=== PATIENT | female | born 1955 | race Caucasian/White ===

== ENCOUNTER 2018-12-22 19:10 | Inpatient (IN) | payer MEDICARE ==
[~2018-12-22] VITALS: Ht 170.2 cm; Wt 83.0 kg
[2018-12-22 19:19] LABS: PCO2 Arterial 41.5 mmHg (35-45); pH Blood Arterial 7.39 (7.35-7.45)
[2018-12-22 19:52] LABS: BASOPHILS ABSOLUTE AUTO 0.04 K/mm3 (0.00-0.23); BASOPHILS PERCENT AUTO 1 % (0-2); EOSINOPHILS ABSOLUTE AUTO 0.23 K/mm3 (0.00-0.68); EOSINOPHILS PERCENT AUTO 3 % (0-6); Hematocrit 40.7 % (33.0-51.0); IMMATURE GRAN ABSOLUTE AUTO 0.05 K/mm3 (0.00-0.10); IMMATURE GRAN PERCENT AUTO 1 % (0-1); LYMPHOCYTES PERCENT AUTO 10 % (21-46); MONOCYTES ABSOLUTE AUTO 0.25 K/mm3 (0.16-1.47); MONOCYTES PERCENT AUTO 4 % (4-13); Mean Corpuscular HGB 30.3 pg (26.0-34.0); Mean Corpuscular HGB Conc 34.4 g/dL (31.5-36.5); Mean Corpuscular Volume 88 fL (80-100); Mean Platelet Volume 9.4 fL (9.1-12.4); NEUTROPHILS ABSOLUTE AUTO 5.78 K/mm3 (1.96-9.15); NEUTROPHILS PERCENT AUTO 82 % (41-73); Platelet Count 271 K/mm3 (150-400); RDW Coefficient Variation 12.1 % (11.7-14.2); RDW Standard Deviation 38.9 fL (35.1-46.3); Red Blood Cell Count 4.62 M/mm3 (3.80-5.20); White Blood Cell Count 7.05 K/mm3 (4.00-11.30)
[2018-12-22 20:05] LABS: Alanine Aminotransfer (ALT/SGP 14 U/L (12-78); Albumin, Blood 3.8 g/dL (3.4-5.0); Albumin/Globulin Ratio 0.9 (0.8-1.8); Alk Phos 142 U/L (50-136); Anion Gap 9 mmol/L (6-16); Aspartate Aminotrans (AST/SGOT 14 U/L (12-37); Bilirubin, Total 0.5 mg/dL (0.1-1.0); Blood Urea Nitrogen 14 mg/dL (8-24); Bun/Creatinine Ratio 13.5 (12.0-20.0); CO2, Blood 27 mmol/L (21-32); Calcium, Blood 8.5 mg/dL (8.5-10.1); Chloride, Blood 102 mmol/L (98-108); Creatinine, Blood 1.04 mg/dL (0.40-1.00); Ethanol (Alcohol), Blood, Med <3 mg/dL; Globulin, Blood 4.2 g/dL (2.2-4.0); Glomerular Filtration Rate 57 (60-); Glucose, Blood 169 mg/dL (70-99); Potassium, Blood 2.8 mmol/L (3.5-5.5); Salicylate <1.7 mg/dL (2.8-20.0); Sodium, Blood 138 mmol/L (136-145)
[2018-12-22 20:06] LABS: Acetaminophen, Random <2.0 ug/mL (10.0-30.0)
[2018-12-22] MEDS ORDERED: LORA1 PO (20:16)
[2018-12-22] MEDS ORDERED: RABE20 PO (20:17)
[2018-12-22] MEDS ORDERED: EUTHYROX112 MCG PO (20:17)
[2018-12-22] MEDS ORDERED: GABA100 PO (20:17)
[2018-12-22] MEDS ORDERED: FURO40 PO (20:17)
[2018-12-22] MEDS ORDERED: Hydroxyzine HCl50 MG PO (20:17)
[2018-12-22 20:21] LABS: Source, Urine Catheter
[2018-12-22 20:24] LABS: Bilirubin, Urine Neg (Neg); Blood, Urine Neg (Neg); Glucose Qualitative, Urine Neg (Neg); Ketones, Urine Neg (Neg); Leukocyte Esterase, Urine Neg (Neg); Nitrite, Urine Neg (Neg); Protein, Urine Neg (Neg); Urobilinogen, Urine NORM (Normal)
[2018-12-22 20:31] LABS: Appearance, Urine Clear (Clear); Color, Urine Yellow (P-Yellow)
[2018-12-22 20:38] LABS: U Amphetamine Screen Not Detected; U Barbituate Screen Not Detected; U Benzodiazapine Screen DETECTED; U Buprenorphine Screen Not Detected; U Cannabinoids Screen Not Detected; U Cocaine Screen Not Detected; U Methadone Screen Not Detected; U Methamphetamine Screen Not Detected; U Opiates Screen Not Detected; U Oxycodone Screen Not Detected; U Phencyclidine Screen Not Detected; U Propoxyphene Screen Not Detected
[2018-12-22] MEDS ORDERED: BUSP15 PO (21:25)
[2018-12-22] MEDS ORDERED: BENZ100A PO (21:44)
[2018-12-22] MEDS ORDERED: Monodox100 MG PO (21:45)
[2018-12-22] MEDS ORDERED: BACL10 PO (21:46)
--- NOTE | 2018-12-23 00:39 | NUR ---
ASSUMED CARE OF PT PT TO ICU 3 FROM ED AT 2200. PT IS UNRESPONSIVE WHILE TRANSITIONING TO ICU BED. PT FAILS TO FOLLOW COMMANDS AND SITS UP IN BED MOANING WITH EYES CLOSED ONLY AFTER AGGRESSIVE STERNAL RUB. PT REPEATS SITTING UP/LAYING DOWN RHYTHMICALLY FOR APPROX 15 MINS BEFORE SHE FALLS BACK TO SLEEP AND BEGINS SNORING. PT HAS DISPLAYED THIS BEHAVIOR WITH EACH STERNAL RUB. PT CURRENTLY PROTECTING HER AIR WAY AND MAINTAINING SATS IN THE UPPER 90'S WHILE SLEEPING BUT SHOWS DECLINE IN O2 WITH PAINFUL STIMULUS. PT'S OTHER VSS. PT INCONTINENT OF BOWEL X3, TEMP DUMONT PATENT AND DRAINING CLEAR YELLOW URINE. PLEASE SEE FULL ADMIT ASSESSMENT.
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
[2018-12-23 03:47] LABS: Hemoglobin 14.3 g/dL (11.5-16.0); Mean Corpuscular HGB 30.8 pg (26.0-34.0); Mean Corpuscular HGB Conc 34.9 g/dL (31.5-36.5); Mean Corpuscular Volume 88 fL (80-100); Mean Platelet Volume 9.3 fL (9.1-12.4); Platelet Count 293 K/mm3 (150-400); RDW Coefficient Variation 12.2 % (11.7-14.2); RDW Standard Deviation 39.4 fL (35.1-46.3); Red Blood Cell Count 4.64 M/mm3 (3.80-5.20)
[2018-12-23 04:07] LABS: Alanine Aminotransfer (ALT/SGP 14 U/L (12-78); Albumin, Blood 3.8 g/dL (3.4-5.0); Albumin/Globulin Ratio 0.9 (0.8-1.8); Alk Phos 142 U/L (50-136); Anion Gap 7 mmol/L (6-16); Aspartate Aminotrans (AST/SGOT 11 U/L (12-37); Bilirubin, Total 0.5 mg/dL (0.1-1.0); Blood Urea Nitrogen 17 mg/dL (8-24); Bun/Creatinine Ratio 18.2 (12.0-20.0); CO2, Blood 30 mmol/L (21-32); Calcium, Blood 8.8 mg/dL (8.5-10.1); Chloride, Blood 105 mmol/L (98-108); Creatinine, Blood 0.93 mg/dL (0.40-1.00); Globulin, Blood 4.1 g/dL (2.2-4.0); Glomerular Filtration Rate >60 (60-); Glucose, Blood 123 mg/dL (70-99); Sodium, Blood 142 mmol/L (136-145); Total Protein, Blood 7.9 g/dL (6.4-8.2)
--- NOTE | 2018-12-23 05:21 | NUR ---
SHIFT SUMMARY NO ACUTE CHANGES OVERNIGHT. PT FAILS TO FOLLOW COMMANDS AND ONLY RESPONDS TO AGGRESSIVE STERNAL RUB BY SITTING UP. PT DOES NOT OPEN HER EYES TO VERBAL OR PAINFUL STIMULI. VSS THROUGHOUT SHIFT. REMAINS AT BEDSIDE. WILL REPORT TO DAYSHIFT NURSE.
--- NOTE | 2018-12-23 05:29 | NUR ---
POISON CONTROL POISON CONTROL NOTIFIED OF PT'S ADMIT AT THIS TIME. SUPPORTIVE MANAGEMENT RECOMMENDED AT THIS TIME.
--- NOTE | 2018-12-23 07:15 | NUR ---
START OF SHIFT NOTE: PATIENT IS CONFUSED, DOES NOT FOLLOW COMMANDS, SITS UP IN BED AND TRYING TO GET UP, INCOMPREHENSIBLE SPEECH, YELLS, MOANS, GROANS, GARBLED, OPENS EYES BUT NOT TO COMMAND, AT BEDSIDE, PATIENT IS RESTRAINT, DIAPHORETIC, TEMP AT 100.0, HR IN 110'S TO 120'S, ST, LUNG SOUNDS CLEAR, BOWEL TONE PRESENT BUT HYPOACTIVE, DUMONT CATHETER IN PLACE WITH TEMP PROBE, DR. COLIN IN TO SEE PATIENT, WILL WRITE ORDERS, PSYCH CONSULT, CALL LIGHT IN REACH, WILL CONTINUE TO MONITOR.
--- NOTE | 2018-12-23 09:04 | NUR ---
FACESHEET SENT TO ED FOR HIEN CONSULT
[2018-12-23 10:43] LABS: Troponin I <0.015 ng/mL (0.000-0.040)
--- NOTE | 2018-12-23 11:32 | NUR ---
PATIENT RESTING AT THIS TIME AFTER ANOTHER DOSE OF ATIVAN, CALL LIGHT IN REACH, WILL CONTINUE TO MONITOR.
--- NOTE | 2018-12-23 11:37 | NUR ---
DR STANFORD CALLED HE IS UNABLE TO SEE PATIENT TODAY, STATED TELEPSYCH COULD BE CONSULTED IF NEEDED TODAY. OTHERWISE HE WILL ATTEMPT TO SEE PATIENT TOMORROW.
--- NOTE | 2018-12-23 12:24 | NUR ---
POISON CONTROL CALLED AND UPDATE WAS PROVIDED, POISON CONTROL SUGGESTES TO CHECK MAGNESIUM AND CK LEVELS, ADD ONS ORDERED, WILL CONTINUE TO MONITOR.
--- NOTE | 2018-12-23 12:58 | NUR ---
PATIENT IS CALM AND QUIET AT THIS TIME AFTER ZYPREXA IM INJECTION AND ATIVAN IV DOSE, SNORING LOUDLY, O2 SATURATION AT 100 % ON RA, PUPILS PINPOINT AND NON-REACTIVE AT THIS TIME, AT BEDSIDE, CALL LIGHT IN REACH, WILL CONTINUE TO MONITOR.
[2018-12-23 12:59] LABS: CPK Creatine Kinase 166 U/L (26-193)
--- NOTE | 2018-12-23 13:42 | NUR ---
PATIENT CONTINUES TO BE AGITATED AND UNRESPONSIVE, UNABLE TO FOLLOW COMMANDS, PATIENT IS YELLING AND SCREAMING INCOHERENT GARBLED SOUNDS, PUPILS AT THIS TIME ARE STILL PINPOINT AND NON REACTIVE, AT BEDSIDE, ROADING ENGINEER IN TO DO STUDY, AT BEDSIDE, CALL LIGHT IN REACH, WILL CONTINUE TO MONITOR.
--- NOTE | 2018-12-23 14:26 | NUR ---
Limited echocardiogram performed.
--- NOTE | 2018-12-23 14:51 | NUR ---
DR. ALFONSO COLIN IN AGAIN TO CHECK ON PATIENT, STATED URGENCY FOR HEAD CT BUT PATIENT CONTINUES TO BE AGITATED AND TRYING TO MOVE CONTINUOUSLY, UNABLE TO FOLLOW COMMANDS.
--- NOTE | 2018-12-23 15:15 | NUR ---
PATIENT TO CT WITH TRANSPORT MONITOR, SEDATED PRIOR TO TEST WITH ATIVAN 2 MG, CONTINUED TO BE AGITATED, BUT CT WAS DONE, PATIENT RETURNED TO ROOM, PLACED BACK ON HARDWIRE MONITOR, CALL LIGHT IN REACH, WILL CONTINUE TO MONITOR.
--- NOTE | 2018-12-23 16:42 | NUR ---
Per RN request, I met with Obdulio brito at bedside. Yelena was very restless and moaning. She is non-lucid and inconsolable. This is clearly upsetting for Obdulio. He appears hyper-attentive, stating "this is my fault. I feel horrible, I will not leave her side." I provided education along the lines of her not being aware of where she is, or why, or who is present; therefore, he should not feel obligated to stay 24/7. Obdulio would not allow me to employee counselor or comfort him. He is very [place], with a malfunctioning hearing aid. He was dismissive. [employer] serices will remain available.
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
--- NOTE | 2018-12-23 23:37 | NUR ---
MIDSHIFT ASSESSMENT PT CONTINUES TO YELL OUT AND BE AGITATED DESPITE 2 MG ATIVAN AND 5 MG ZYPREXA. PT PULLS ON DUMONT CATH WITH FEET AND MANAGES TO RELEASE IT FROM STAT LOCK, BILATERAL SOFT ANKLE RESTRAINTS APPLIED TO PREVENT PT FROM PULLING DUMONT OUT. PT WILL STOP MOANING AND TURN TO ME IF I SHARPLY SAY HER NAME AND THEN SHE CONTINUES TO MOAN AND YELL. ANXIOUSLY REMAINS AT BEDSIDE. VSS.
[2018-12-24 03:36] LABS: BASOPHILS ABSOLUTE AUTO 0.05 K/mm3 (0.00-0.23); BASOPHILS PERCENT AUTO 1 % (0-2); EOSINOPHILS ABSOLUTE AUTO 0.02 K/mm3 (0.00-0.68); EOSINOPHILS PERCENT AUTO 0 % (0-6); Hemoglobin 13.4 g/dL (11.5-16.0); IMMATURE GRAN ABSOLUTE AUTO 0.04 K/mm3 (0.00-0.10); IMMATURE GRAN PERCENT AUTO 0 % (0-1); LYMPHOCYTES ABSOLUTE AUTO 1.36 K/mm3 (0.84-5.20); LYMPHOCYTES PERCENT AUTO 15 % (21-46); MONOCYTES ABSOLUTE AUTO 0.78 K/mm3 (0.16-1.47); MONOCYTES PERCENT AUTO 9 % (4-13); Mean Corpuscular HGB 30.1 pg (26.0-34.0); Mean Corpuscular HGB Conc 34.4 g/dL (31.5-36.5); Mean Corpuscular Volume 88 fL (80-100); Mean Platelet Volume 9.4 fL (9.1-12.4); NEUTROPHILS ABSOLUTE AUTO 6.94 K/mm3 (1.96-9.15); NEUTROPHILS PERCENT AUTO 76 % (41-73); Platelet Count 257 K/mm3 (150-400); RDW Coefficient Variation 12.2 % (11.7-14.2); RDW Standard Deviation 38.8 fL (35.1-46.3); Red Blood Cell Count 4.45 M/mm3 (3.80-5.20); White Blood Cell Count 9.19 K/mm3 (4.00-11.30)
[2018-12-24 03:52] LABS: Anion Gap 7 mmol/L (6-16); Blood Urea Nitrogen 23 mg/dL (8-24); Bun/Creatinine Ratio 26.6 (12.0-20.0); CO2, Blood 26 mmol/L (21-32); Calcium, Blood 8.6 mg/dL (8.5-10.1); Chloride, Blood 115 mmol/L (98-108); Creatinine, Blood 0.87 mg/dL (0.40-1.00); Glomerular Filtration Rate >60 (60-); Glucose, Blood 120 mg/dL (70-99); Potassium, Blood 3.7 mmol/L (3.5-5.5); Sodium, Blood 148 mmol/L (136-145)
--- NOTE | 2018-12-24 06:01 | NUR ---
SHIFT SUMMARY PT CONTINUES TO YELL "SILKE" AND IS NOW YELLING "JUDY" AND "OH GOD". PT DOES RESPOND TO HER NAME BY TURNING AND LOOKING BUT REMAINS AGITATED AND WILL NOT FOLLOW COMMANDS. PT IS RESTLESS IN BED TWISTING AND TURNING AND REMAINS IN BILATERAL UPPER AND LOWER SOFT RESTRAINTS WELL A BONNY VEST TO PROTECT PT'S IV'S AND DUMONT CATH. WHILE ATTEMPTING TO PROVIDE CARE FOR PT, PT WILL PULL AWAY AND YELL "NO" OR "OUCH". PT'S CONTINUES AT BEDSIDE COMFORTING PT. VSS THROUGHOUT SHIFT. 300 ML URINARY OUTPUT. SEE PREVIOUS SHIFT NOTES. WILL REPORT TO DAYSHIFT NURSE.
--- NOTE | 2018-12-24 10:44 | NUR ---
POISON CONTROL UPDATED WITH LABS AND VITALS, STATES THEY WILL CHECK BACK ON PT TOMORROW.
--- NOTE | 2018-12-24 10:54 | NUR ---
0720: CARE ASSUMED, ASSESSMENT COMPLETED. PT IN BED IN 4 POINT SOFT RESTRAINTS AND A BONNY VEST PER ORDERS. PT AWAKE AND ALERT, AGITATED, CALLING OUT TO , CONTINUES TO PULL AT RESTRAINTS AND ATTEMPT TO SIT UP STATING SHE WANTS OUT OF BED. VSS, HR NSR, ATTENDS ON. RESTRAINTS RELEASED MOMENTARILY, SKIN UNDERNEATH INTACT. VIDEO MONITORING ACTIVE. 0750: SEROQUEL ADMINISTERED AT THIS TIME FOR AGITATION AND RESTLESSNESS. PT REPOSITIONED IN BED FOR COMFORT, AT BEDSIDE. 0900: PT'S LEFT FOR APPOINTMENT, PT CALMED AFTER LEFT BEDSIDE. AM MEDICATIONS ADMINISTERED WITHOUT DIFFICULTY, PT TOLERATING PO WELL, WATER GIVEN. 1100: PT'S BACK AT BEDSIDE, PT LYING CALMLY IN BED BUT REQUESTING HER REMOVE RESTRINTS. PT SEEMS TO BE MORE AGITATED WITH AT BEDSIDE. ASSISTED TO REPOSITION, BLE RESTRAINTS RELEASED FOR A BREAK AT THIS TIME, WILL MONITOR CLOSELY.
--- NOTE | 2018-12-24 11:32 | NUR ---
1130: PT AGITATED, CALLING OUT, CONFUSED. ZYPREXA ADMINISTERED PER ORDERS, LIGHTS TURNED DOWN. SWB RESTRAINTS AND BONNY REMAIN IN PLACE, AT BEDSIDE. VSS, WILL CONTINUE TO MONITOR.
--- NOTE | 2018-12-24 13:09 | NUR ---
1230: DR. STANFORD AT BEDSIDE TO ASSESS PT, PT REMAINS CONFUSED AND UNABLE TO ANSWER QUESTIONS APPROPRIATELY, DOES NOT KNOW PLACE/DATE/SITUATION, PT NOT COMBATIVE AT THIS TIME. 1310: PT AGITATED, CALLING OUT, YELLING AT TO LET HER GO. ATIVAN ADMINISTERED PER ORDERS.
--- NOTE | 2018-12-24 13:45 | NUR ---
SEROQUEL ADMINISTERED AT THIS TIME FOR CONTINUED AGITAITON/RESTLESSNESS. BUE RESTRAINTS AND BONNY VEST REMAIN IN PLACE, AT BEDSIDE. ENCOURAGED TO GO HOME AND REST, REFUSES STATING HE CANNOT LEAVE HIS . SEEMS OVERLY WORRIED BUT NOT CONFRONTATIONAL.
--- NOTE | 2018-12-24 14:21 | NUR ---
1420: DR. POLANCO AT BEDSIDE FOR ASSESSMENT, NOTIFIED OF URINE OUTPUT 310ML IN 7 HOURS AND OF PT'S REQUEST FOR FOOD/FLUIDS. PT REMAINS CONFUSED, IS COOPERATIVE WITH ASSESSMENTS AND TREATMENTS.
--- NOTE | 2018-12-24 17:04 | NUR ---
1600: PT SLEEPING AT THIS TIME, VSS. NO RESTLESSNESS OR AGITATION NOTED. REMAINS AT BEDSIDE.
--- NOTE | 2018-12-24 18:46 | NUR ---
1800: PT REPOSITIONED IN BED, ATTENDS CHANGED FOR SMALL BM, CALMOSEPTINE TO QUINTEN AREA, CATH CARE DONE. PT AWAKE, BECOMING MORE ALERT, FOLLOWING COMMANDS. VSS, REMAINS AT BEDSIDE, WILL CONTINUE TO MONITOR. 1845: PT SITTING UP IN BED TALKING WITH , SPEECH REMAINS SLURRED, PT ORIENTED TO SELF, KNOWS SHE IS IN A HOSPITAL, DOES NOT KNOW THE DATE, TOWN, OR WHAT BROUGHT HER TO THE HOSPITAL. PT COOPERATIVE AND CALM, BUE RESTRAINTS RELEASED AT THIS TIME, WILL CONTINUE TO MONITOR CLOSELY. VSS, PT DENIES THOUGHTS OF HARMING HERSELF OR OTHERS, STATES SHE DOES NOT REMEMBER TAKING AN OVERDOSE OF ATIVAN OR ANY OTHER MEDICATIONS. REPORT TO ONCOMING SHIFT.
--- NOTE | 2018-12-24 19:10 | NUR ---
PT'S REPORTS THAT PT "SOUNDS NORMAL TO ME" WHEN SHE SPEAKS TO HIM, STATING THAT HER SPEECH IS ALWAYS SLURRED AND SLOW. WHEN ASKED IF SHE NORMALLY HAS WORD SALAD, HE STATES SHE DOES NOT BUT THAT HER SPEECH IS OTHERWISE BASELINE.
--- NOTE | 2018-12-24 19:35 | NUR ---
START OF SHIFT: REPORT FROM RADHA DICKINSON. PT A+O X4 BUT HAD TO TAKE TIME TO RESPOND. PT SPEECH CLEAR AND VSS. PT STATED THAT SHE WANTED TO GO HOME TONIGHT. AMA EXPLAINED TO BOTH PT AND SPOUSE. BOTH HAVE REASONED TO HAVE PT STAY UNTIL TOMORROW. PT REQUESTED SOMETHING MORE COMFORTABLE TO SLEEP IN AND RECLINER PROVIDED AND WILL HAVE PT TRY INSTEAD OF THE BED.
--- NOTE | 2018-12-24 19:40 | NUR ---
PT DENIES SI: DURING INITIAL ASSESSMENT PT STERNLY STATED THAT SHE DID NOT TRY TO HARM HERSELF AND TWO TIMES STATED ONLY TAKING FIVE PILLS OF HER ATIVAN. PT STATED, "I WOULD NEVER TRY TO HURT MYSELF". PT STATES TAKING ATIVAN FOR ANXIETY THEN STATED, "I'M NEVER TAKING THOSE AGAIN". PT'S SPOUSE AT BEDSIDE AND BOTH SEEM HAPPY AND ENJOYING EACH OTHER.
--- NOTE | 2018-12-24 20:25 | NUR ---
PT FEEDING SELF JELLO AND TOLERATING WELL. PT CALM, COOPERATIVE, SPEECH REMAINS CLEAR. SPOUSE CONTINUES AT BEDSIDE.
--- NOTE | 2018-12-24 21:53 | NUR ---
TIM WATSON. [facility] PT HAVING INCONTINENT LOOSE GEL-LIKE STOOL. SENDING FOR STAT C-DIFF. PT STATED HAS HAD C-DIFF BEFORE WHICH WAS LAST JANUARY.
--- NOTE | 2018-12-25 01:47 | NUR ---
PT SPOUSE ASSISTED PT BACK TO BED FROM RECLINER CHAIR. PT REMAINS A+O AND APPROPRIATE. PT C/O MID BACK PAIN WHICH IS CHRONIC AND TAKES IBUPROFEN AT HOME. DR. GRIDER NOTIFIED. NEW ORDERS FOR IBUPROFEN PRN AND ADDED PROTONIX DAILY.
--- NOTE | 2018-12-25 04:21 | NUR ---
PT AWAKENS EASILY TO RN AT BEDSIDE. PT STATES IS SLEEPING OFF AND ON. PT ASKS AGAIN, IF DOCTOR HAS BEEN IN YET. PT OTHERWISE STATES IS COMFORTABLE IN THE BED. SPOUSE CONTINUES AT BEDSIDE.
[2018-12-25 09:08] LABS: Anion Gap 6 mmol/L (6-16); Blood Urea Nitrogen 13 mg/dL (8-24); Bun/Creatinine Ratio 17.3 (12.0-20.0); CO2, Blood 26 mmol/L (21-32); Calcium, Blood 8.5 mg/dL (8.5-10.1); Chloride, Blood 109 mmol/L (98-108); Creatinine, Blood 0.75 mg/dL (0.40-1.00); Glomerular Filtration Rate >60 (60-); Glucose, Blood 98 mg/dL (70-99); Potassium, Blood 3.4 mmol/L (3.5-5.5); Sodium, Blood 141 mmol/L (136-145)
--- NOTE | 2018-12-25 10:22 | NUR ---
0720: CARE ASSUMED, ASSESSMENT COMPLETED. PT ALERT AND ORIENTED X4, SPEECH IS CLEAR, NO WORD SALAD PRESENT, NEURO ASSESSMENT WNL. PT STATES SHE TOOK 5 TABS OF 1MG ATIVAN AT HOME ON THE DAY OF ADMISSION, HAD NO INTENTIONS OF SELF HARM OR SUICIDAL IDEATION THAT DAY, DENIES THESE FEELINGS AT THIS TIME WELL. VSS, PT PLEASANT AND COOPERATIVE, BACK TO BASELINE MENTAL STATUS PER WHO IS AT BEDSIDE. PT AND ARE CORDIAL, TALKING AND LAUGHING TOGETHER. 0900: PT INCONTINENT OF LIQUID STOOL AT THIS TIME, ASSISTED TO CLEAN UP AND CHANGE GOWN. PT SITTING IN CHAIR, DENIES OTHER NEEDS. DR. POLANCO IN TO SEE PT. 1000: IMODIUM 4MG ADMINISTERED PER ODERS. STATUS CHANGED TO MEDICAL, CARDIAC MONITORING DC'D, PT SITTING IN CHAIR PLAYING CARDS WITH , DENIES PAIN OR C/O. REMAINS PLEASANT, COOPERATIVE, AND ORIENTED X4.
--- NOTE | 2018-12-25 12:10 | NUR ---
1205: PT FINISHED LUNCH WITHOUT DIFFICULTY, DENIES NAUSEA OR PAIN, REMAINS ORIENTED, APPROPRIATE AND COOPERATIVE. TALKING TO TELEPSYCH DOCTOR AT THIS TIME.
--- NOTE | 2018-12-25 13:54 | NUR ---
DISCHARGE DISCHARGE ORDERS RECEIVED FROM DR. POLANCO. ALL INSTRUCTIONS WENT OVER WITH PATIENT AND PATIENT'S AT BEDSIDE. VERBALIZE UNDERSTANDING OF ORDERS. IV REMOVED. PT DISCHARGED TO HOME WITH AT 1356.
--- NOTE | 2018-12-25 14:07 | NUR ---
1345: TELEPSYCH CONSULT COMPLETED, DR POLANCO HAS BEEN IN TOUCH WITH TELEPSYCH PHYSICIAN AND IS AWARE OF RECOMMENDATIONS. PT REMAINS CALM AND COOPERATIVE, IS DRESSED AND READY FOR DISCHARGE. DC INSTRUCTIONS TO BE GIVEN BY ALOK GARNER. VS, PT ALERT AND OREINTED, APPROPRIATE, CONTINUES TO DENY SUICIDAL IDEATION OR IDEAS OF SELF HARM/HARM TO OTHERS.
== END 2018-12-25 13:56 | disposition home or self-care (01) | DRG 917 ==
LOC: ER 19:10 → ICUE 20:31 → ER 20:31 → ICUW 20:31 → ICUE 20:32 → ICUW 22:00 → ICUE 12-23 02:00
PROVIDERS: Emergency Medicine; Family Medicine; Internal Medicine Endocrinology, Diabetes & Metabolism; ADMIT Internal Medicine
DX: T42.4X2A Poisoning by benzodiazepines, intentional self-harm, initial encounter (principal); G92 Toxic encephalopathy; F41.8 Other specified anxiety disorders; E87.6 Hypokalemia; K21.9 Gastro-esophageal reflux disease without esophagitis; E03.9 Hypothyroidism, unspecified; Z85.3 Personal history of malignant neoplasm of breast; I10 Essential (primary) hypertension; E78.5 Hyperlipidemia, unspecified; Z78.1 Physical restraint status
CPT/HCPCS: 36415; 36600; 51702; 70450; 71045; 80048; 80053; 81003; 82306; 82550; 82803; 83735; 84484; 85025; 85027; 87493; 93005; 93010; 93308; 99285-25; C9113; G0480; J1650; J2060; J3480; J7030